=== PATIENT | male | born 1965 | race Caucasian/White ===

== ENCOUNTER 2016-02-14 08:43 | Inpatient (IN) | payer OTHER ==
[~2016-02-14] VITALS: Ht 177.8 cm; Wt 116.0 kg
[~2016-02-14 08:43] MED LIST: ALPRAZOLAM0.5 MG PO; AMBIEN5 MG PO; ASPIR 8181 M1 PO; ASPIRIN81 M2 PO; B-COMPLEX-VITA1 EACH PO; BACTRIM,SEPT1 TABLET PO; BENTYL20 MG PO; CALCIUM 600 MG1 EACH PO; CIPRO500 MG PO; CLINORIL200 MG PO; CLONAZEPAM0.5 MG PO; CYMBALTA30 MG PO; DAILY VALUE1 EACH PO; EXTRA STRENGTH500 M1 PO; FENTANYL1 EAC5 TD; GABAPENTIN300 MG PO; IRON325 M1 PO; LEVAQUIN750 MG PO; LIDOCAINE-HC 3-07 G1 PR; MACROBID100 MG PO; MAXIPIME2 GM IM; MINIPRESS1 MG PO; MYCARDIS PO; NAPROSYN500 MG PO; NEURONTIN300 MG PO; OLANZAPINE10 MG PO; OLANZAPINE7.5 MG PO; OXYCODONE HCL10 MG PO; OXYCODONE HCL15 MG PO; PERCOCET 5/31 TABLET PO; RELAFEN500 M1 PO; SERTRALINE HCL100 MG PO; SINGULAIR10 MG PO; SULINDAC200 MG PO; SUPER B COMP1 TABLET PO; TERAZOSIN HCL1 MG PO; TYLENOL EXTRA500 MG PO; TYLENOL REGULA325 MG PO; VITAMIN E200 UNI2 PO; ZOFRAN4 MG PO; ZOLOFT100 MG PO; ZOLOFT50 MG PO; ZOLPIDEM TARTRAT5 MG PO; ZYPREXA5 MG PO
[2016-02-14] MEDS ORDERED: LO-DOSE ASPIRIN81 M2 PO (09:23)
[2016-02-14 09:34] VITALS: BP 127/80
[2016-02-14 15:45] VITALS: BP 128/82
[2016-02-14 19:28] LABS: HEMATOCRIT 30.5 % (38.0-50.0); MCH 27.1 PG (29.0-34.0); MCHC 31.8 G/DL (30.0-36.0); MCV 85.2 FL (86-99); MEAN PLAT.VOLUME 10.3 uM^3 (9.0-12.4); PLATELET COUNT 220 K/uL (156-360); RBC DIS.WIDTH-CV 20.8 % (11.8-14.6); RBC DIS.WIDTH-SD 64.7 % (39-53); RED BLOOD COUNT 3.58 M/uL (4.00-5.50)
[2016-02-14 19:29] LABS: WHITE BLOOD COUNT 8.7 K/uL (4.1-10.2)
[2016-02-14 22:31] VITALS: BP 155/87
[2016-02-15 03:47] VITALS: BP 117/65
[2016-02-15 06:35] LABS: HEMATOCRIT 29.3 % (38.0-50.0); MCH 26.7 PG (29.0-34.0); MCHC 31.7 G/DL (30.0-36.0); MCV 84.2 FL (86-99); MEAN PLAT.VOLUME 9.7 uM^3 (9.0-12.4); PLATELET COUNT 177 K/uL (156-360); RBC DIS.WIDTH-SD 64.9 % (39-53); RED BLOOD COUNT 3.48 M/uL (4.00-5.50)
[2016-02-15 07:11] LABS: ANION GAP 7 MEQ/L (2-14); CHLORIDE 108 MEQ/L (99-109); GFR ESTIMATE (CALCULATED) 57 mL/min/; GLUCOSE 106 mg/dL (70-99); MAGNESIUM 1.8 mg/dl (1.3-2.7); POTASSIUM 4.4 MEQ/L (3.7-5.4); SAMPLE HEMOLYSIS CHECK 0; SAMPLE ICTERIC CHECK 0; SAMPLE LIPEMIA CHECK 0; SODIUM 135 MEQ/L (136-147); UREA NITROGEN (BUN) 16 mg/dL (9-23)
[2016-02-15 08:22] VITALS: BP 117/69
[2016-02-15 11:21] VITALS: BP 108/57
[2016-02-15 15:48] VITALS: BP 155/67
[2016-02-15 19:46] VITALS: BP 140/73
[2016-02-15 23:00] VITALS: BP 146/81
[2016-02-16 02:58] VITALS: BP 134/69
[2016-02-16 07:05] LABS: HEMATOCRIT 28.5 % (38.0-50.0); MCH 26.9 PG (29.0-34.0); MCHC 31.6 G/DL (30.0-36.0); MCV 85.1 FL (86-99); MEAN PLAT.VOLUME 10.4 uM^3 (9.0-12.4); PLATELET COUNT 159 K/uL (156-360); RBC DIS.WIDTH-CV 20.8 % (11.8-14.6); RBC DIS.WIDTH-SD 64.6 % (39-53); RED BLOOD COUNT 3.35 M/uL (4.00-5.50); WHITE BLOOD COUNT 5.8 K/uL (4.1-10.2)
[2016-02-16 07:30] LABS: ANION GAP 8 MEQ/L (2-14); CHLORIDE 109 MEQ/L (99-109); GFR ESTIMATE (CALCULATED) 57 mL/min/; GLUCOSE 123 mg/dL (70-99); POTASSIUM 4.1 MEQ/L (3.7-5.4); SAMPLE HEMOLYSIS CHECK 0; SAMPLE ICTERIC CHECK 0; SAMPLE LIPEMIA CHECK 0; SODIUM 138 MEQ/L (136-147); UREA NITROGEN (BUN) 17 mg/dL (9-23)
[2016-02-16 07:50] VITALS: BP 120/57
[2016-02-16] MEDS ORDERED: OXAYDO5 MG PO (10:25)
[2016-02-16 11:16] VITALS: BP 125/77
[2016-02-16 16:30] VITALS: BP 153/94
[2016-02-16 19:52] VITALS: BP 145/72
[2016-02-16 23:10] VITALS: BP 142/75
[2016-02-17 03:17] VITALS: BP 122/66
[2016-02-17 06:47] LABS: MCH 27.1 PG (29.0-34.0); MCHC 32.1 G/DL (30.0-36.0); MCV 84.5 FL (86-99); MEAN PLAT.VOLUME 10.5 uM^3 (9.0-12.4); PLATELET COUNT 168 K/uL (156-360); RBC DIS.WIDTH-CV 20.5 % (11.8-14.6); RBC DIS.WIDTH-SD 63.2 % (39-53); RED BLOOD COUNT 3.43 M/uL (4.00-5.50); WHITE BLOOD COUNT 7.1 K/uL (4.1-10.2)
[2016-02-17 07:15] LABS: ANION GAP 11 MEQ/L (2-14); CHLORIDE 108 MEQ/L (99-109); GFR ESTIMATE (CALCULATED) 49 mL/min/; GLUCOSE 120 mg/dL (70-99); POTASSIUM 4.6 MEQ/L (3.7-5.4); SAMPLE HEMOLYSIS CHECK 0; SAMPLE ICTERIC CHECK 0; SAMPLE LIPEMIA CHECK 0; SODIUM 138 MEQ/L (136-147); UREA NITROGEN (BUN) 17 mg/dL (9-23)
[2016-02-17 07:59] VITALS: BP 117/70
[2016-02-17 11:54] VITALS: BP 110/65
[2016-02-17 16:58] VITALS: BP 129/81
[2016-02-17 19:20] VITALS: BP 120/68
[2016-02-17 22:13] VITALS: BP 135/79
[2016-02-18 00:05] VITALS: BP 117/56
[2016-02-18 03:55] VITALS: BP 106/68
[2016-02-18 06:33] LABS: HEMATOCRIT 28.6 % (38.0-50.0); MCHC 31.8 G/DL (30.0-36.0); MCV 84.9 FL (86-99); PLATELET COUNT 161 K/uL (156-360); RBC DIS.WIDTH-CV 19.9 % (11.8-14.6); RBC DIS.WIDTH-SD 62.7 % (39-53); RED BLOOD COUNT 3.37 M/uL (4.00-5.50); WHITE BLOOD COUNT 7.1 K/uL (4.1-10.2)
[2016-02-18 07:06] LABS: ANION GAP 10 MEQ/L (2-14); CHLORIDE 108 MEQ/L (99-109); GFR ESTIMATE (CALCULATED) 57 mL/min/; GLUCOSE 118 mg/dL (70-99); POTASSIUM 4.4 MEQ/L (3.7-5.4); SAMPLE HEMOLYSIS CHECK 0; SAMPLE ICTERIC CHECK 0; SAMPLE LIPEMIA CHECK 0; SODIUM 139 MEQ/L (136-147); UREA NITROGEN (BUN) 13 mg/dL (9-23)
[2016-02-18 08:34] VITALS: BP 130/82
[2016-02-18 12:25] VITALS: BP 132/78
[2016-02-18 17:10] VITALS: BP 132/69
[2016-02-18 19:49] VITALS: BP 142/87
[2016-02-19 00:03] VITALS: BP 134/69
[2016-02-19 03:59] VITALS: BP 107/56
[2016-02-19 07:50] VITALS: BP 105/59
[2016-02-19 14:59] VITALS: BP 111/59
[2016-02-19 23:00] VITALS: BP 142/86
[2016-02-20 07:18] VITALS: BP 139/34; BP 139/64
[2016-03-11] MEDS ORDERED: OXAYDO5 MG PO (14:44)
[2016-03-11] MEDS ORDERED: ZYPREXA10 MG PO (14:45)
[2016-03-11] MEDS ORDERED: KLONOPIN0.5 M1 PO (14:46)
[2016-03-11] MEDS ORDERED: MINIPRESS1 MG PO (14:48)
[2016-03-11] MEDS ORDERED: DURAGESIC25 MCG TD (14:50)
[2016-03-11] MEDS ORDERED: CALCIUM 600 +1 EA16 PO (14:51)
[2016-03-11] MEDS ORDERED: VITAMIN E400 UNIT PO (14:53)
== END 2016-02-20 10:01 | disposition home health service (06) | DRG 333 ==
LOC: 2SOUTH 08:43 → 5EAST 08:43 → 2SOUTH 14:13 → 5EAST 14:52 → 2SOUTH 15:34 → 5EAST 02-20 10:01
PROVIDERS: Physician Assistant; Surgery
PROC: 0W9J00Z Drainage of Pelvic Cavity with Drainage Device, Open Approach (ICD-10-PCS; principal; 2016-02-14)
PROC: 3E0R3CZ (ICD-10-PCS; principal; 2016-02-14)
PROC: 00HU33Z Insertion of Infusion Device into Spinal Canal, Percutaneous Approach (ICD-10-PCS; principal; 2016-02-14)
PROC: 0DTP0ZZ Resection of Rectum, Open Approach (ICD-10-PCS; principal; 2016-02-14)
PROC: 30233N1 Transfusion of Nonautologous Red Blood Cells into Peripheral Vein, Percutaneous Approach (ICD-10-PCS; principal; 2016-02-14)
PROC: 0QBS0ZZ Excision of Coccyx, Open Approach (ICD-10-PCS; principal; 2016-02-14)
DX: K65.1 Peritoneal abscess (principal); D62 Acute posthemorrhagic anemia; Z85.048 Personal history of other malignant neoplasm of rectum, rectosigmoid junction, and anus; Z85.038 Personal history of other malignant neoplasm of large intestine; I10 Essential (primary) hypertension; F41.1 Generalized anxiety disorder; F32.9 Major depressive disorder, single episode, unspecified; J45.909 Unspecified asthma, uncomplicated; I71.2 Thoracic aortic aneurysm, without rupture; F17.220 Nicotine dependence, chewing tobacco, uncomplicated; Z93.3 Colostomy status; Z93.2 Ileostomy status; Z85.46 Personal history of malignant neoplasm of prostate; Z85.51 Personal history of malignant neoplasm of bladder; Z90.79 Acquired absence of other genital organ(s); Z90.6 Acquired absence of other parts of urinary tract; Z08 Encounter for follow-up examination after completed treatment for malignant neoplasm; Z88.5 Allergy status to narcotic agent
CPT/HCPCS: 80048; 83735; 84100; 85027; 86850; 86900; 86901; 86920; 88305; 93005; J0330; J1335; J1650; J2405; J2795; J3010; J7040; J7050; P9016

== ENCOUNTER 2016-03-13 08:35 | Day surgery (SDC) | payer OTHER ==
[~2016-03-13] VITALS: Ht 177.8 cm; Wt 116.0 kg
[~2016-03-13 08:35] MED LIST changes: +CALCIUM 600 +1 EA16 PO; +DURAGESIC25 MCG TD; +KLONOPIN0.5 M1 PO; +LO-DOSE ASPIRIN81 M2 PO; +OXAYDO5 MG PO; +VITAMIN E400 UNIT PO; +ZYPREXA10 MG PO
[2016-03-13 09:31] VITALS: BP 122/77
[2016-03-13 11:47] VITALS: BP 154/92
== END 2016-03-13 12:06 | disposition home or self-care (01) ==
LOC: SDC 08:35
DX: I87.8 Other specified disorders of veins (principal); C19 Malignant neoplasm of rectosigmoid junction; I10 Essential (primary) hypertension; F41.1 Generalized anxiety disorder; F32.9 Major depressive disorder, single episode, unspecified; I71.2 Thoracic aortic aneurysm, without rupture; J45.909 Unspecified asthma, uncomplicated; Z88.5 Allergy status to narcotic agent; F17.220 Nicotine dependence, chewing tobacco, uncomplicated; Z82.49 Family history of ischemic heart disease and other diseases of the circulatory system; Z83.3 Family history of diabetes mellitus; Z82.5 Family history of asthma and other chronic lower respiratory diseases
CPT/HCPCS: 71010; C1751; J0690; J2405; J3010

== ENCOUNTER 2016-04-26 17:45 | Emergency (ER) | payer OTHER ==
[~2016-04-26] VITALS: Ht 177.8 cm; Wt 128.3 kg
[~2016-04-26 17:45] MED LIST changes: +TERAZOSIN HCL2 MG PO
[2016-04-26 18:29] LABS: HEMATOCRIT 30.1 % (38.0-50.0); MCH 28.3 PG (29.0-34.0); MCHC 33.6 G/DL (30.0-36.0); MCV 84.3 FL (86-99); MEAN PLAT.VOLUME 10.7 uM^3 (9.0-12.4); NRBC (%) 0.8 /100 WBC (0-0); PLATELET COUNT 135 K/uL (156-360); RBC DIS.WIDTH-CV 21.4 % (11.8-14.6); RBC DIS.WIDTH-SD 63.9 % (39-53); RED BLOOD COUNT 3.57 M/uL (4.00-5.50); WHITE BLOOD COUNT 5.3 K/uL (4.1-10.2)
[2016-04-26 18:40] LABS: CHLORIDE 105 mEq/L (99-109); POTASSIUM 3.8 mEq/L (3.7-5.4); SODIUM 136 mEq/L (136-147)
[2016-04-26 18:42] LABS: GLUCOSE 261 mg/dL (70-99)
[2016-04-26 18:44] LABS: ANION GAP 12 MEQ/L (2-14); TOTAL BILIRUBIN 0.2 mg/dL (0.0-1.0)
[2016-04-26 18:46] LABS: ALKALINE PHOSPHATASE 124 IU/L (3-129); GFR ESTIMATE (CALCULATED) 40 mL/min/
[2016-04-26 18:47] LABS: UREA NITROGEN (BUN) 20 mg/dL (9-23)
[2016-04-26 18:50] LABS: TROP-I INTERPRETATION NEGATIVE; TROPONIN-I < 0.01 ng/mL (0.0-0.30)
[2016-04-26] MEDS ORDERED: TOPROL XL50 MG PO (18:56)
[2016-04-26 19:45] LABS: ADD MIUA? YES; BILIRUBIN NEGATIVE; BLOOD NEGATIVE; COLOR YELLOW ((YELLOW)); GLUCOSE (STRIP) >=500; KETONES NEGATIVE; LEUKOCYTES SMALL; NITRITE NEGATIVE; PROTEIN (STRIP) 100; SPECIFIC GRAVITY 1.017 (1.000-1.030); UROBILINOGEN 0.2 MG/DL (0.2-1.0)
[2016-04-26 19:54] LABS: BACTERIA NONE SEEN /HPF; EPITHELIAL CELLS RARE /HPF; MUCUS TRACE /LPF; UCUL ADDED? NO; UNCLASSIFIED CASTS 0-5 /LPF; UNCLASSIFIED CRYSTALS 1+ /HPF; WHITE BLOOD CELLS 40-50 /HPF (0-5)
[2016-04-26 20:06] VITALS: BP 144/93
== END 2016-04-26 20:07 | disposition home or self-care (01) ==
LOC: EME 17:45
DX: I10 Essential (primary) hypertension (principal); R82.99 Other abnormal findings in urine; C61 Malignant neoplasm of prostate; C67.9 Malignant neoplasm of bladder, unspecified; C18.9 Malignant neoplasm of colon, unspecified; C17.9 Malignant neoplasm of small intestine, unspecified; Z88.5 Allergy status to narcotic agent; Z79.82 Long term (current) use of aspirin; G40.909 Epilepsy, unspecified, not intractable, without status epilepticus
CPT/HCPCS: 80053; 81003; 84484; 85027; 99281; 99283

== ENCOUNTER → 2016-05-10 | Outpatient (CLI) | payer OTHER ==
[~2016-05-10] MED LIST changes: +CEFDINIR300 MG PO; +FAMOTIDINE40 MG PO; +HYTRIN1 MG PO; +LEVEMIR100 UNIT/2 SC; +LIDOCAINE20 MG/1 M5 PO; +MAGIC MOUTHWASH PO; +METOPROLOL TAR100 MG PO; +PROCHLORPERAZIN10 MG PO; +STRESS B-COMPL1 EACH PO; +TOPROL XL50 MG PO; +TRAZODONE HCL50 MG PO; +VITAMIN E1000 UNI1 PO; +ZIPRASIDONE HCL20 MG PO
== END | disposition home or self-care (01) ==
LOC: NUC 10:40
DX: N13.30 Unspecified hydronephrosis (principal); Z93.6 Other artificial openings of urinary tract status
CPT/HCPCS: 78709; A9562

== ENCOUNTER 2016-05-21 10:32 | Emergency (ER) | payer OTHER ==
[~2016-05-21] VITALS: Ht 177.8 cm; Wt 118.5 kg
[~2016-05-21 10:32] MED LIST changes: -CEFDINIR300 MG PO; -FAMOTIDINE40 MG PO; -HYTRIN1 MG PO; -LEVEMIR100 UNIT/2 SC; -LIDOCAINE20 MG/1 M5 PO; -MAGIC MOUTHWASH PO; -METOPROLOL TAR100 MG PO; -STRESS B-COMPL1 EACH PO; -TRAZODONE HCL50 MG PO; -VITAMIN E1000 UNI1 PO; -ZIPRASIDONE HCL20 MG PO
[2016-05-21 10:59] VITALS: BP 115/70
[2016-05-21] MEDS ORDERED: STRESS B-COMPL1 EACH PO (16:13)
[2016-05-21] MEDS ORDERED: TRAZODONE HCL50 MG PO (16:15)
[2016-05-21] MEDS ORDERED: FAMOTIDINE40 MG PO (16:17)
[2016-05-21] MEDS ORDERED: VITAMIN E1000 UNI1 PO (16:22)
[2016-05-21] MEDS ORDERED: HYTRIN1 MG PO (16:23)
[2016-05-21] MEDS ORDERED: METOPROLOL TAR100 MG PO (16:24)
[2016-05-21] MEDS ORDERED: MAGIC MOUTHWASH PO (16:35)
[2016-05-28] MEDS ORDERED: LEVEMIR100 UNIT/2 SC (09:09)
[2016-05-28] MEDS ORDERED: KLONOPIN0.5 M1 PO (10:18)
== END 2016-05-21 11:30 | disposition left against medical advice (07) ==
LOC: EME 10:32
DX: R73.9 Hyperglycemia, unspecified (principal); Z53.21 Procedure and treatment not carried out due to patient leaving prior to being seen by health care provider
CPT/HCPCS: 80048; 81003; 85027; 93005

== ENCOUNTER 2016-05-21 12:17 | Inpatient (IN) | payer OTHER ==
[~2016-05-21] VITALS: Ht 177.8 cm; Wt 124.8 kg
[2016-05-21 13:38] LABS: HEMATOCRIT 26.5 % (38.0-50.0); MCH 29.2 PG (29.0-34.0); MCHC 34.7 G/DL (30.0-36.0); MCV 84.1 FL (86-99); MEAN PLAT.VOLUME 11.6 uM^3 (9.0-12.4); NRBC (%) 0.6 /100 WBC (0-0); PLATELET COUNT 184 K/uL (156-360); RBC DIS.WIDTH-CV 21.3 % (11.8-14.6); RBC DIS.WIDTH-SD 65.5 % (39-53); RED BLOOD COUNT 3.15 M/uL (4.00-5.50); WHITE BLOOD COUNT 3.2 K/uL (4.1-10.2)
[2016-05-21 13:43] LABS: CHLORIDE 90 mEq/L (99-109); POTASSIUM 4.1 mEq/L (3.7-5.4); SODIUM 125 mEq/L (136-147)
[2016-05-21 13:45] LABS: ADD MIUA? YES; BILIRUBIN NEGATIVE; BLOOD NEGATIVE; COLOR YELLOW ((YELLOW)); GLUCOSE (STRIP) >=500; KETONES NEGATIVE; LEUKOCYTES LARGE; NITRITE POSITIVE; PROTEIN (STRIP) 30; SPECIFIC GRAVITY 1.027 (1.000-1.030); UROBILINOGEN 0.2 MG/DL (0.2-1.0)
[2016-05-21 13:46] LABS: ANION GAP 13 MEQ/L (2-14)
[2016-05-21 13:47] LABS: GLUCOSE 689 mg/dL (70-99); TOTAL BILIRUBIN 0.4 mg/dL (0.0-1.0)
[2016-05-21 13:48] LABS: ALKALINE PHOSPHATASE 151 IU/L (3-129)
[2016-05-21 13:49] LABS: GFR ESTIMATE (CALCULATED) 29 mL/min/
[2016-05-21 14:19] LABS: BACTERIA RARE /HPF; EPITHELIAL CELLS NONE SEEN /HPF; MUCUS NONE SEEN /LPF; UCUL ADDED? YES; WHITE BLOOD CELLS TNTC /HPF (0-5); WHITE BLOOD CELLS CLUMP MANY /HPF (0-5)
[2016-05-21 14:26] LABS: BASE EXCESS 0.2 mEq/L (-3 to +3); BICARBONATE 24.6 mEq/L (22-26); METHEMOGLOBIN 1.3 % (0-1.5); PCO2 38 mm Hg (35-45); PO2 67 mm Hg (80-100); pH 7.42 (7.35-7.45)
[2016-05-21 14:27] LABS: COMMENTS - BLOOD GASES A+C+; DEVICE RA; FI02 21 %; SITE RRA; TOTAL RESP RATE 18 resp/min
[2016-05-21] MEDS ORDERED: STRESS B-COMPL1 EACH PO (16:13)
[2016-05-21] MEDS ORDERED: TRAZODONE HCL50 MG PO (16:15)
[2016-05-21] MEDS ORDERED: FAMOTIDINE40 MG PO (16:17)
[2016-05-21] MEDS ORDERED: VITAMIN E1000 UNI1 PO (16:22)
[2016-05-21] MEDS ORDERED: HYTRIN1 MG PO (16:23)
[2016-05-21] MEDS ORDERED: METOPROLOL TAR100 MG PO (16:24)
[2016-05-21] MEDS ORDERED: MAGIC MOUTHWASH PO (16:35)
[2016-05-21 17:18] LABS: POINT-OF-CARE METER ID UU14100415
[2016-05-21 17:56] LABS: CHLORIDE 98 mEq/L (99-109); POTASSIUM 3.7 mEq/L (3.7-5.4)
[2016-05-21 17:58] LABS: SODIUM 132 mEq/L (136-147)
[2016-05-21 17:59] LABS: ANION GAP 11 MEQ/L (2-14)
[2016-05-21 18:02] LABS: GFR ESTIMATE (CALCULATED) 34 mL/min/; UREA NITROGEN (BUN) 21 mg/dL (9-23)
[2016-05-21 18:03] LABS: GLUCOSE 404 mg/dL (70-99)
[2016-05-22 04:00] VITALS: BP 117/59
[2016-05-22 07:23] LABS: HEMATOCRIT 23.2 % (38.0-50.0); MCH 29.6 PG (29.0-34.0); MCHC 34.1 G/DL (30.0-36.0); MCV 86.9 FL (86-99); MEAN PLAT.VOLUME 11.1 uM^3 (9.0-12.4); NRBC (%) 1.3 /100 WBC (0-0); PLATELET COUNT 155 K/uL (156-360); RBC DIS.WIDTH-CV 21.7 % (11.8-14.6); RBC DIS.WIDTH-SD 68.8 % (39-53); RED BLOOD COUNT 2.67 M/uL (4.00-5.50); WHITE BLOOD COUNT 2.3 K/uL (4.1-10.2)
[2016-05-22 07:44] LABS: ALKALINE PHOSPHATASE 108 IU/L (3-129); ANION GAP 9 MEQ/L (2-14); CHLORIDE 100 MEQ/L (99-109); GFR ESTIMATE (CALCULATED) 43 mL/min/; GLUCOSE 390 mg/dL (70-99); POTASSIUM 4.1 MEQ/L (3.7-5.4); SAMPLE HEMOLYSIS CHECK 0; SAMPLE ICTERIC CHECK 0; SAMPLE LIPEMIA CHECK 0; SODIUM 130 MEQ/L (136-147); TOTAL BILIRUBIN 0.2 MG/DL (0.0-1.0); UREA NITROGEN (BUN) 20 mg/dL (9-23)
[2016-05-22 08:12] VITALS: BP 116/66
[2016-05-22 11:26] VITALS: BP 119/75
[2016-05-22 12:24] LABS: POINT-OF-CARE METER ID UU14188625; POINT-OF-CARE USER ID BHSKTD
[2016-05-22 12:24] LABS: POINT-OF-CARE METER ID UU14100415
[2016-05-22 12:37] LABS: Estimated Average Glucose 278 mg/dL (70-123); HEMOGLOBIN A1c (GLYCOHEMOGLOB) 11.3 % HGB (Below 5.7)
[2016-05-22 16:03] VITALS: BP 132/82
[2016-05-22 19:54] VITALS: BP 121/60
[2016-05-22 21:27] LABS: POINT-OF-CARE METER ID UU14174225
[2016-05-22 23:30] VITALS: BP 120/67
[2016-05-23 03:08] VITALS: BP 122/65
[2016-05-23 06:16] LABS: HEMATOCRIT 23.5 % (38.0-50.0); MCH 29.3 PG (29.0-34.0); MCHC 33.2 G/DL (30.0-36.0); MCV 88.3 FL (86-99); MEAN PLAT.VOLUME 10.8 uM^3 (9.0-12.4); NRBC (%) 2.3 /100 WBC (0-0); PLATELET COUNT 171 K/uL (156-360); RBC DIS.WIDTH-CV 21.4 % (11.8-14.6); RBC DIS.WIDTH-SD 69.3 % (39-53); RED BLOOD COUNT 2.66 M/uL (4.00-5.50); WHITE BLOOD COUNT 2.7 K/uL (4.1-10.2)
[2016-05-23 06:44] LABS: ANION GAP 7 MEQ/L (2-14); CHLORIDE 107 MEQ/L (99-109); GFR ESTIMATE (CALCULATED) 43 mL/min/; GLUCOSE 285 mg/dL (70-99); POTASSIUM 4.2 MEQ/L (3.7-5.4); SAMPLE HEMOLYSIS CHECK 0; SAMPLE ICTERIC CHECK 0; SAMPLE LIPEMIA CHECK 0; SODIUM 135 MEQ/L (136-147); UREA NITROGEN (BUN) 14 mg/dL (9-23)
[2016-05-23 08:14] VITALS: BP 129/86
[2016-05-23] MEDS ORDERED: LEVEMIR100 UNIT/2 SC (11:24)
[2016-05-23 11:28] VITALS: BP 112/62
[2016-05-23] MEDS ORDERED: CEFDINIR300 MG PO (11:35)
[2016-05-24] MEDS ORDERED: LIDOCAINE20 MG/1 M5 PO (17:52)
[2016-05-24] MEDS ORDERED: ZIPRASIDONE HCL20 MG PO (17:53)
[2016-05-28] MEDS ORDERED: LEVEMIR100 UNIT/2 SC (09:09)
[2016-05-28] MEDS ORDERED: KLONOPIN0.5 M1 PO (10:18)
== END 2016-05-23 12:21 | disposition home health service (06) | DRG 637 ==
LOC: EME 12:17 → 5SOUTH 16:28 → EDOF 16:28 → 5SOUTH 19:03
PROVIDERS: Internal Medicine; Nurse Practitioner Adult Health; Physician Assistant; Student in an Organized Health Care Education/Training Program
DX: E11.00 Type 2 diabetes mellitus with hyperosmolarity without nonketotic hyperglycemic-hyperosmolar coma (NKHHC) (principal); K65.1 Peritoneal abscess; E87.1 Hypo-osmolality and hyponatremia; N39.0 Urinary tract infection, site not specified; D50.9 Iron deficiency anemia, unspecified; C19 Malignant neoplasm of rectosigmoid junction; Z79.899 Other long term (current) drug therapy; N17.9 Acute kidney failure, unspecified; I12.9 Hypertensive chronic kidney disease with stage 1 through stage 4 chronic kidney disease, or unspecified chronic kidney disease; N18.3 Chronic kidney disease, stage 3 (moderate); E11.22 Type 2 diabetes mellitus with diabetic chronic kidney disease; I71.2 Thoracic aortic aneurysm, without rupture; F41.9 Anxiety disorder, unspecified; F32.9 Major depressive disorder, single episode, unspecified; K21.9 Gastro-esophageal reflux disease without esophagitis; Z93.3 Colostomy status; Z93.6 Other artificial openings of urinary tract status; Z90.49 Acquired absence of other specified parts of digestive tract
CPT/HCPCS: 36600; 71010; 80048; 80048 91; 80053; 81003; 82010; 82803; 82948; 83036; 85025; 85027; 85610; 85730; 87040; 87077; 87086; 87186; 93005; 99281; 99285; J0696; J1644; J1815; J2405; J7030; J7050

== ENCOUNTER 2016-05-23 14:31 | Emergency (ER) | payer OTHER ==
[~2016-05-23] VITALS: Ht 177.8 cm; Wt 1195.0 kg
[~2016-05-23 14:31] MED LIST changes: +CEFDINIR300 MG PO; +FAMOTIDINE40 MG PO; +HYTRIN1 MG PO; +LEVEMIR100 UNIT/2 SC; +MAGIC MOUTHWASH PO; +METOPROLOL TAR100 MG PO; +STRESS B-COMPL1 EACH PO; +TRAZODONE HCL50 MG PO; +VITAMIN E1000 UNI1 PO
[2016-05-23 15:19] LABS: HEMATOCRIT 26.4 % (38.0-50.0); MCH 29.1 PG (29.0-34.0); MCV 88.3 FL (86-99); MEAN PLAT.VOLUME 10.1 uM^3 (9.0-12.4); NRBC (%) 1.6 /100 WBC (0-0); PLATELET COUNT 206 K/uL (156-360); RBC DIS.WIDTH-CV 21.1 % (11.8-14.6); RBC DIS.WIDTH-SD 68.2 % (39-53); RED BLOOD COUNT 2.99 M/uL (4.00-5.50); WHITE BLOOD COUNT 3.1 K/uL (4.1-10.2)
[2016-05-23 15:29] LABS: CHLORIDE 106 mEq/L (99-109); POTASSIUM 4.5 mEq/L (3.7-5.4); SODIUM 135 mEq/L (136-147)
[2016-05-23 15:31] LABS: GLUCOSE 263 mg/dL (70-99)
[2016-05-23 15:32] LABS: ANION GAP 8 MEQ/L (2-14)
[2016-05-23 15:34] LABS: SERUM ETHYL ALCOHOL < 10 mg/dL
[2016-05-23 15:35] LABS: GFR ESTIMATE (CALCULATED) 40 mL/min/; UREA NITROGEN (BUN) 14 mg/dL (9-23)
[2016-05-23 17:19] LABS: AMPHETAMINE NEGATIVE (500 ng/mL); BARBITURATES NEGATIVE (200 ng/mL); BENZODIAZEPINES NEGATIVE (150 ng/mL); COCAINE NEGATIVE (150 ng/mL); INTERNAL CONTROLS VALID? YES; METHADONE NEGATIVE (200 ng/mL); METHAMPHETAMINE NEGATIVE (500 ng/mL); OPIATES (MORPHINE) NEGATIVE (100 ng/mL); OXYCODONE NEGATIVE (100 ng/mL); PHENCYCLIDINE NEGATIVE (25 ng/mL); PROPOXYPHENE NEGATIVE (300 ng/mL); THC CANNABINOIDS NEGATIVE (50 ng/mL); TRICYCLIC ANTIDEPRESSANTS NEGATIVE (300 ng/mL)
[2016-05-23 20:55] LABS: POINT-OF-CARE METER ID UU13113702
[2016-05-24 00:39] VITALS: BP 128/77
[2016-05-24] MEDS ORDERED: LIDOCAINE20 MG/1 M5 PO (17:52)
[2016-05-24] MEDS ORDERED: ZIPRASIDONE HCL20 MG PO (17:53)
[2016-05-28] MEDS ORDERED: LEVEMIR100 UNIT/2 SC (09:09)
[2016-05-28] MEDS ORDERED: KLONOPIN0.5 M1 PO (10:18)
== END 2016-05-24 00:41 | disposition home or self-care (01) ==
LOC: EME 14:31
PROVIDERS: Emergency Medicine
DX: F32.9 Major depressive disorder, single episode, unspecified (principal); F43.23 Adjustment disorder with mixed anxiety and depressed mood; E11.9 Type 2 diabetes mellitus without complications; I10 Essential (primary) hypertension; Z85.46 Personal history of malignant neoplasm of prostate; Z85.51 Personal history of malignant neoplasm of bladder; Z85.038 Personal history of other malignant neoplasm of large intestine; Z85.068 Personal history of other malignant neoplasm of small intestine
CPT/HCPCS: 80048 91; 82948; 85027; 90839; 99281; 99285; G0480

== ENCOUNTER 2016-05-24 15:12 | Observation (INO) | payer OTHER ==
[~2016-05-24] VITALS: Ht 177.8 cm; Wt 120.0 kg
[2016-05-24 16:03] LABS: HEMATOCRIT 26.8 % (38.0-50.0); MCH 29.8 PG (29.0-34.0); MCV 87.9 FL (86-99); MEAN PLAT.VOLUME 10.9 uM^3 (9.0-12.4); NRBC (%) 2.3 /100 WBC (0-0); PLATELET COUNT 221 K/uL (156-360); RBC DIS.WIDTH-CV 20.5 % (11.8-14.6); RBC DIS.WIDTH-SD 65.9 % (39-53); RED BLOOD COUNT 3.05 M/uL (4.00-5.50)
[2016-05-24 16:16] LABS: CHLORIDE 100 mEq/L (99-109); POTASSIUM 4.8 mEq/L (3.7-5.4)
[2016-05-24 16:18] LABS: SODIUM 127 mEq/L (136-147)
[2016-05-24 16:19] LABS: ANION GAP 9 MEQ/L (2-14)
[2016-05-24 16:20] LABS: GLUCOSE 596 mg/dL (70-99)
[2016-05-24 16:22] LABS: GFR ESTIMATE (CALCULATED) 38 mL/min/
[2016-05-24 16:23] LABS: UREA NITROGEN (BUN) 16 mg/dL (9-23)
[2016-05-24 16:25] LABS: TROP-I INTERPRETATION NEGATIVE; TROPONIN-I < 0.01 ng/mL (0.0-0.30)
[2016-05-24] MEDS ORDERED: LIDOCAINE20 MG/1 M5 PO (17:52)
[2016-05-24] MEDS ORDERED: ZIPRASIDONE HCL20 MG PO (17:53)
[2016-05-24 20:30] VITALS: BP 158/94
[2016-05-24 22:04] LABS: TROP-I INTERPRETATION NEGATIVE; TROPONIN-I < 0.01 ng/mL (0.0-0.30)
[2016-05-25] VITALS: BP 114/55
[2016-05-25 03:09] VITALS: BP 100/55
[2016-05-25 03:25] LABS: HEMATOCRIT 25.7 % (38.0-50.0); MCH 28.8 PG (29.0-34.0); MCHC 32.7 G/DL (30.0-36.0); MEAN PLAT.VOLUME 10.3 uM^3 (9.0-12.4); NRBC (%) 1.4 /100 WBC (0-0); PLATELET COUNT 207 K/uL (156-360); RBC DIS.WIDTH-CV 20.5 % (11.8-14.6); RED BLOOD COUNT 2.92 M/uL (4.00-5.50); WHITE BLOOD COUNT 2.9 K/uL (4.1-10.2)
[2016-05-25 03:34] LABS: CHLORIDE 107 mEq/L (99-109); SODIUM 139 mEq/L (136-147)
[2016-05-25 03:37] LABS: ANION GAP 9 MEQ/L (2-14); GLUCOSE 162 mg/dL (70-99)
[2016-05-25 03:40] LABS: GFR ESTIMATE (CALCULATED) 46 mL/min/
[2016-05-25 03:41] LABS: UREA NITROGEN (BUN) 15 mg/dL (9-23)
[2016-05-25 03:47] LABS: TROP-I INTERPRETATION NEGATIVE; TROPONIN-I < 0.01 ng/mL (0.0-0.30)
[2016-05-25 08:57] LABS: POINT-OF-CARE METER ID UU13113831
[2016-05-25 09:13] VITALS: BP 116/65
[2016-05-25 11:44] VITALS: BP 124/83
[2016-05-25 11:53] LABS: POINT-OF-CARE METER ID UU13113831
[2016-05-28] MEDS ORDERED: LEVEMIR100 UNIT/2 SC (09:09)
[2016-05-28] MEDS ORDERED: KLONOPIN0.5 M1 PO (10:18)
[2016-05-28 14:53] LABS: POINT-OF-CARE METER ID UU13113702
[2016-05-28 14:53] LABS: POINT-OF-CARE METER ID UU13113778
== END 2016-05-25 12:15 | disposition home health service (06) ==
LOC: EME 15:12 → EDOF 19:08 → 5WEST 19:52
PROVIDERS: Hospitalist
DX: R07.89 Other chest pain (principal); E11.65 Type 2 diabetes mellitus with hyperglycemia; E87.1 Hypo-osmolality and hyponatremia; C18.9 Malignant neoplasm of colon, unspecified; D64.9 Anemia, unspecified; I12.9 Hypertensive chronic kidney disease with stage 1 through stage 4 chronic kidney disease, or unspecified chronic kidney disease; N18.3 Chronic kidney disease, stage 3 (moderate); D72.819 Decreased white blood cell count, unspecified; Z93.3 Colostomy status; K21.9 Gastro-esophageal reflux disease without esophagitis; F41.1 Generalized anxiety disorder; F32.9 Major depressive disorder, single episode, unspecified; E66.9 Obesity, unspecified; Z68.37 Body mass index [BMI] 37.0-37.9, adult; K61.2 Anorectal abscess
CPT/HCPCS: 71020; 71250; 72192; 80048; 82948; 84484; 85027; 93005; 99281; 99285; G0378; J1644; J1815; J7030

== ENCOUNTER 2016-05-29 11:24 | Inpatient (IN) | payer OTHER ==
[~2016-05-29] VITALS: Ht 177.8 cm; Wt 118.1 kg
[~2016-05-29 11:24] MED LIST changes: +LIDOCAINE20 MG/1 M5 PO; +ZIPRASIDONE HCL20 MG PO
[2016-05-29 11:45] LABS: POINT-OF-CARE METER ID UU13113778
[2016-05-29 12:46] LABS: CHLORIDE 105 mEq/L (99-109); HEMATOCRIT 32.5 % (38.0-50.0); MCH 29.2 PG (29.0-34.0); MCHC 32.9 G/DL (30.0-36.0); MCV 88.6 FL (86-99); MEAN PLAT.VOLUME 11.5 uM^3 (9.0-12.4); NRBC (%) 0.3 /100 WBC (0-0); PLATELET COUNT 283 K/uL (156-360); POTASSIUM 4.2 mEq/L (3.7-5.4); RBC DIS.WIDTH-SD 64.2 % (39-53); RED BLOOD COUNT 3.67 M/uL (4.00-5.50); SODIUM 133 mEq/L (136-147); WHITE BLOOD COUNT 7.1 K/uL (4.1-10.2)
[2016-05-29 12:48] LABS: GLUCOSE 284 mg/dL (70-99)
[2016-05-29 12:49] LABS: ANION GAP 11 MEQ/L (2-14)
[2016-05-29 12:51] LABS: SERUM ETHYL ALCOHOL < 10 mg/dL
[2016-05-29 12:52] LABS: GFR ESTIMATE (CALCULATED) 38 mL/min/
[2016-05-29 12:53] LABS: UREA NITROGEN (BUN) 32 mg/dL (9-23)
[2016-05-29 12:57] LABS: TROP-I INTERPRETATION NEGATIVE; TROPONIN-I < 0.01 ng/mL (0.0-0.30)
[2016-05-29 13:39] LABS: AMPHETAMINE NEGATIVE (500 ng/mL); BARBITURATES NEGATIVE (200 ng/mL); BENZODIAZEPINES NEGATIVE (150 ng/mL); COCAINE NEGATIVE (150 ng/mL); INTERNAL CONTROLS VALID? YES; METHADONE NEGATIVE (200 ng/mL); METHAMPHETAMINE NEGATIVE (500 ng/mL); OPIATES (MORPHINE) NEGATIVE (100 ng/mL); OXYCODONE NEGATIVE (100 ng/mL); PHENCYCLIDINE NEGATIVE (25 ng/mL); PROPOXYPHENE NEGATIVE (300 ng/mL); THC CANNABINOIDS NEGATIVE (50 ng/mL); TRICYCLIC ANTIDEPRESSANTS NEGATIVE (300 ng/mL)
[2016-05-29] MEDS ORDERED: ZOFRAN8 MG PO (14:55)
[2016-05-29] MEDS ORDERED: COMPAZINE10 MG PO (14:57)
[2016-05-29] MEDS ORDERED: NOVOLOG 10100 UNITS/ SC (14:58)
[2016-05-29] MEDS ORDERED: ZOLPIDEM TARTRAT5 MG PO (14:59)
[2016-05-29] MEDS ORDERED: CEFDINIR300 MG PO (15:03)
[2016-05-29] MEDS ORDERED: OLANZAPINE7.5 MG PO (15:05)
[2016-05-29] MEDS ORDERED: SERTRALINE HCL100 MG PO (15:28)
[2016-05-29 17:05] VITALS: BP 131/76
[2016-05-29 18:26] LABS: TROP-I INTERPRETATION NEGATIVE; TROPONIN-I 0.01 ng/mL (0.0-0.30)
[2016-05-29 18:46] LABS: POINT-OF-CARE METER ID UU13113700
[2016-05-29 20:15] VITALS: BP 119/78
[2016-05-29 21:06] LABS: POINT-OF-CARE METER ID UU14162513
[2016-05-29 23:35] VITALS: BP 118/60
[2016-05-30 01:08] LABS: TROP-I INTERPRETATION NEGATIVE; TROPONIN-I < 0.01 ng/mL (0.0-0.30)
[2016-05-30 07:25] LABS: TROP-I INTERPRETATION NEGATIVE; TROPONIN-I < 0.01 ng/mL (0.0-0.30)
[2016-05-30 07:48] LABS: HEMATOCRIT 30.5 % (38.0-50.0); MCH 29.3 PG (29.0-34.0); MCHC 32.5 G/DL (30.0-36.0); MCV 90.2 FL (86-99); MEAN PLAT.VOLUME 11.2 uM^3 (9.0-12.4); PLATELET COUNT 237 K/uL (156-360); RBC DIS.WIDTH-CV 19.8 % (11.8-14.6); RBC DIS.WIDTH-SD 66.3 % (39-53); RED BLOOD COUNT 3.38 M/uL (4.00-5.50); WHITE BLOOD COUNT 4.3 K/uL (4.1-10.2)
[2016-05-30 07:57] LABS: ALKALINE PHOSPHATASE 111 IU/L (3-129); ANION GAP 12 MEQ/L (2-14); CHLORIDE 108 MEQ/L (99-109); GFR ESTIMATE (CALCULATED) 43 mL/min/; GLUCOSE 311 mg/dL (70-99); POTASSIUM 4.9 MEQ/L (3.7-5.4); SAMPLE HEMOLYSIS CHECK 0; SAMPLE ICTERIC CHECK 0; SAMPLE LIPEMIA CHECK 0; SODIUM 137 MEQ/L (136-147); TOTAL BILIRUBIN 0.3 MG/DL (0.0-1.0); UREA NITROGEN (BUN) 34 mg/dL (9-23)
[2016-05-30 08:10] VITALS: BP 130/70
[2016-05-30 12:09] VITALS: BP 132/75
[2016-05-30 13:13] LABS: POINT-OF-CARE METER ID UU14162513
[2016-05-30 16:53] VITALS: BP 126/71
[2016-05-30] MEDS ORDERED: KLONOPIN0.5 M1 PO (18:55)
[2016-05-30 20:00] VITALS: BP 105/56
[2016-05-31 00:09] LABS: POINT-OF-CARE METER ID UU13113831
[2016-05-31 00:30] VITALS: BP 106/54
[2016-05-31 04:00] VITALS: BP 110/63
[2016-05-31 07:00] LABS: ANION GAP 10 MEQ/L (2-14); CHLORIDE 104 MEQ/L (99-109); GFR ESTIMATE (CALCULATED) 49 mL/min/; GLUCOSE 293 mg/dL (70-99); POTASSIUM 4.3 MEQ/L (3.7-5.4); SAMPLE HEMOLYSIS CHECK 0; SAMPLE ICTERIC CHECK 0; SAMPLE LIPEMIA CHECK 2; SODIUM 133 MEQ/L (136-147); UREA NITROGEN (BUN) 29 mg/dL (9-23)
[2016-05-31 07:39] VITALS: BP 110/74
[2016-05-31 08:12] LABS: POINT-OF-CARE METER ID UU14162513
[2016-05-31 10:53] VITALS: BP 108/69
[2016-06-03 12:20] LABS: POINT-OF-CARE METER ID UU13113831
== END 2016-05-31 15:40 | DRG 313 ==
LOC: EME 11:24 → EDOF 15:16 → 5WEST 15:16 → EDOF 15:16 → 5WEST 16:38
PROVIDERS: Hospitalist; Nurse Practitioner Adult Health
DX: R07.89 Other chest pain (principal); E11.65 Type 2 diabetes mellitus with hyperglycemia; C20 Malignant neoplasm of rectum; N18.3 Chronic kidney disease, stage 3 (moderate); I12.9 Hypertensive chronic kidney disease with stage 1 through stage 4 chronic kidney disease, or unspecified chronic kidney disease; E78.5 Hyperlipidemia, unspecified; F32.9 Major depressive disorder, single episode, unspecified; K21.9 Gastro-esophageal reflux disease without esophagitis; Z93.59 Other cystostomy status; F41.1 Generalized anxiety disorder; E11.22 Type 2 diabetes mellitus with diabetic chronic kidney disease; R45.851 Suicidal ideations
CPT/HCPCS: 71020; 78582; 80048; 80053; 81003; 82948; 84484; 85025; 85027; 93005; 99202; 99281; 99285; A9539; A9540; G0378; G0480; J1644; J1815; J3480; J7030; J7120

== ENCOUNTER 2016-05-31 15:33 | Inpatient (IN) | payer OTHER ==
[~2016-05-31] VITALS: Ht 177.8 cm; Wt 118.1 kg
[~2016-05-31 15:33] MED LIST changes: +COMPAZINE10 MG PO; +NOVOLOG 10100 UNITS/ SC; +ZOFRAN8 MG PO
[2016-05-31 15:57] VITALS: BP 109/51
[2016-05-31 16:48] VITALS: BP 109/51
[2016-06-01 06:24] LABS: POINT-OF-CARE METER ID UU13113830
[2016-06-01 08:01] VITALS: BP 108/57
[2016-06-01 11:52] LABS: POINT-OF-CARE METER ID UU13113830
[2016-06-01 15:42] VITALS: BP 124/61
[2016-06-01 16:36] LABS: POINT-OF-CARE METER ID UU13113830
[2016-06-01 20:56] LABS: POINT-OF-CARE METER ID UU13113830; POINT-OF-CARE USER ID BHSSMG
[2016-06-02 06:40] LABS: POINT-OF-CARE METER ID UU13113830; POINT-OF-CARE USER ID ENVTLS63
[2016-06-02 07:54] VITALS: BP 127/69
[2016-06-02] MEDS ORDERED: CEFDINIR300 MG PO (09:38)
[2016-06-02] MEDS ORDERED: OLANZAPINE10 MG PO (09:38)
[2016-06-02] MEDS ORDERED: EFFEXOR XR37.5 MG PO (09:38)
== END 2016-06-02 11:12 | disposition home or self-care (01) | DRG 885 ==
LOC: 1WEST 15:33
PROVIDERS: Psychiatry & Neurology Psychiatry
DX: F33.9 Major depressive disorder, recurrent, unspecified (principal); R45.851 Suicidal ideations; F41.1 Generalized anxiety disorder; E11.9 Type 2 diabetes mellitus without complications; I10 Essential (primary) hypertension; Z85.038 Personal history of other malignant neoplasm of large intestine
CPT/HCPCS: 80053; 82948; 85025

== ENCOUNTER → 2016-06-03 | Outpatient (CLI) | payer OTHER ==
[~2016-06-03] MED LIST changes: +EFFEXOR XR37.5 MG PO
[2016-06-03 09:12] LABS: EOSINOPHIL (%) 2.3 % (0-5); EOSINOPHIL COUNT 0.1 K/uL (0-0.3); IMMATURE GRANULOCYTE (%) 0.7 % (0.0-0.7); INSTRUMENT ABS NEUTROPHIL CT 3.7 K/uL; LYMPHOCYTE COUNT 0.3 K/uL (1.0-2.8); MCH 30.5 PG (29.0-34.0); MCHC 34.6 G/DL (30.0-36.0); MCV 88.1 FL (86-99); MEAN PLAT.VOLUME 10.9 uM^3 (9.0-12.4); MONOCYTE (%) 7.4 % (3-12); MONOCYTE COUNT 0.3 K/uL (0-0.8); NEUTROPHIL (%) 82.1 % (45-76); NEUTROPHIL COUNT 3.7 K/uL (1.8-6.4); PLATELET COUNT 180 K/uL (156-360); RBC DIS.WIDTH-CV 18.2 % (11.8-14.6); RBC DIS.WIDTH-SD 59.4 % (39-53); RED BLOOD COUNT 3.18 M/uL (4.00-5.50); WHITE BLOOD COUNT 4.4 K/uL (4.1-10.2)
[2016-06-03 09:22] LABS: PROTHROMBIN TIME 9.7 (9.2-11.2); PTT 25.4 (25-32)
== END | disposition home or self-care (01) ==
LOC: OPR 08:26 → EDSTATUS 09:00 → OPR 09:00
PROVIDERS: Urology
PROC: 0T9030Z Drainage of Right Kidney with Drainage Device, Percutaneous Approach (ICD-10-PCS; principal; 2016-06-03)
DX: N13.30 Unspecified hydronephrosis (principal); I10 Essential (primary) hypertension; Z85.51 Personal history of malignant neoplasm of bladder; Z85.46 Personal history of malignant neoplasm of prostate; C20 Malignant neoplasm of rectum; Z92.21 Personal history of antineoplastic chemotherapy; Z92.3 Personal history of irradiation; Z80.0 Family history of malignant neoplasm of digestive organs; Z93.6 Other artificial openings of urinary tract status; Z93.2 Ileostomy status
CPT/HCPCS: 77012; 85025; 85610; 85730; C1769; J0690; J3010

== ENCOUNTER → 2016-06-28 | Outpatient (CLI) | payer OTHER ==
[~2016-06-28] MED LIST changes: +EFFEXOR25 MG PO
== END | disposition home or self-care (01) ==
LOC: NUC 10:47
DX: R94.4 Abnormal results of kidney function studies (principal); N13.1 Hydronephrosis with ureteral stricture, not elsewhere classified; Z93.6 Other artificial openings of urinary tract status
CPT/HCPCS: 78709; A9562

== ENCOUNTER 2016-07-10 13:06 | Inpatient (IN) | payer OTHER ==
[~2016-07-10] VITALS: Ht 177.8 cm; Wt 129.5 kg
[~2016-07-10 13:06] MED LIST changes: +HUMALOG100 UNIT/1 SC
[2016-07-10 14:30] LABS: HEMATOCRIT 24.5 % (38.0-50.0); MCH 31.4 PG (29.0-34.0); MCHC 33.1 G/DL (30.0-36.0); MEAN PLAT.VOLUME 11.1 uM^3 (9.0-12.4); PLATELET COUNT 106 K/uL (156-360); RBC DIS.WIDTH-CV 18.2 % (11.8-14.6); RBC DIS.WIDTH-SD 61.4 % (39-53); RED BLOOD COUNT 2.58 M/uL (4.00-5.50)
[2016-07-10 14:38] LABS: CHLORIDE 109 mEq/L (99-109); SODIUM 138 mEq/L (136-147)
[2016-07-10 14:39] LABS: POTASSIUM 4.7 mEq/L (3.7-5.4)
[2016-07-10 14:41] LABS: ANION GAP 10 MEQ/L (2-14); GLUCOSE 291 mg/dL (70-99)
[2016-07-10 14:43] LABS: SERUM ETHYL ALCOHOL < 10 mg/dL
[2016-07-10 14:44] LABS: GFR ESTIMATE (CALCULATED) 43 mL/min/
[2016-07-10 14:45] LABS: UREA NITROGEN (BUN) 21 mg/dL (9-23)
[2016-07-10 15:43] LABS: AMPHETAMINE NEGATIVE (500 ng/mL); BARBITURATES NEGATIVE (200 ng/mL); BENZODIAZEPINES NEGATIVE (150 ng/mL); COCAINE NEGATIVE (150 ng/mL); METHADONE NEGATIVE (200 ng/mL); METHAMPHETAMINE NEGATIVE (500 ng/mL); OPIATES (MORPHINE) NEGATIVE (100 ng/mL); PHENCYCLIDINE NEGATIVE (25 ng/mL); THC CANNABINOIDS NEGATIVE (50 ng/mL); TRICYCLIC ANTIDEPRESSANTS NEGATIVE (300 ng/mL)
[2016-07-10 15:44] LABS: INTERNAL CONTROLS VALID? YES; OXYCODONE PRESUMPTIVE POSITIVE (100 ng/mL); PROPOXYPHENE NEGATIVE (300 ng/mL)
[2016-07-10] MEDS ORDERED: ZYPREXA10 MG PO (16:24)
[2016-07-10] MEDS ORDERED: EFFEXOR XR37.5 MG PO (16:27)
[2016-07-10] MEDS ORDERED: ESZOPICLONE2 MG PO (16:28)
[2016-07-10] MEDS ORDERED: LIDOCAINE-PRIL1 EACH TP (16:30)
[2016-07-10] MEDS ORDERED: QUETIAPINE FUMA25 MG PO (16:30)
[2016-07-10] MEDS ORDERED: REXULTI0.5 MG PO (16:31)
[2016-07-10 16:47] VITALS: BP 126/73
[2016-07-11 00:11] LABS: POINT-OF-CARE METER ID UU13113830
[2016-07-11 06:08] LABS: POINT-OF-CARE METER ID UU13113830; POINT-OF-CARE USER ID BHSLRM
[2016-07-11 07:20] VITALS: BP 109/57
[2016-07-11 11:51] LABS: POINT-OF-CARE METER ID UU13113830
[2016-07-11 15:36] VITALS: BP 107/66
[2016-07-11 17:06] LABS: POINT-OF-CARE METER ID UU13113830; POINT-OF-CARE USER ID BHSMRC
== END 2016-07-11 17:24 | DRG 885 ==
LOC: EME 13:06 → EDOF 15:42 → 1WEST 15:42
PROVIDERS: Emergency Medicine; Psychiatry & Neurology Psychiatry
DX: F33.1 Major depressive disorder, recurrent, moderate (principal); F41.1 Generalized anxiety disorder; C18.9 Malignant neoplasm of colon, unspecified; C20 Malignant neoplasm of rectum; G89.3 Neoplasm related pain (acute) (chronic); D50.9 Iron deficiency anemia, unspecified; R45.851 Suicidal ideations; T81.89XA Other complications of procedures, not elsewhere classified, initial encounter; Y83.8 Other surgical procedures as the cause of abnormal reaction of the patient, or of later complication, without mention of misadventure at the time of the procedure; Z93.6 Other artificial openings of urinary tract status; Z93.2 Ileostomy status
CPT/HCPCS: 80048; 80053; 82948; 85025; 85027; 90839; 99281; 99285; G0480; J1815; Q0164

== ENCOUNTER 2016-07-11 14:36 | Inpatient (IN) | payer OTHER ==
[~2016-07-11 14:36] MED LIST changes: +ESZOPICLONE2 MG PO; +LIDOCAINE-PRIL1 EACH TP; +QUETIAPINE FUMA25 MG PO; +REXULTI0.5 MG PO
[2016-07-11 17:45] VITALS: BP 111/66
[2016-07-11 23:08] VITALS: BP 152/86
[2016-07-12 02:45] LABS: POINT-OF-CARE METER ID UU13113725
[2016-07-12 06:23] LABS: POINT-OF-CARE METER ID UU13113725
[2016-07-12 07:12] VITALS: BP 119/60
[2016-07-12 08:29] LABS: EOSINOPHIL (%) 3.3 % (0-5); EOSINOPHIL COUNT 0.1 K/uL (0-0.3); HEMATOCRIT 26.1 % (38.0-50.0); IMMATURE GRANULOCYTE (%) 0.5 % (0.0-0.7); INSTRUMENT ABS NEUTROPHIL CT 1.5 K/uL; LYMPHOCYTE COUNT 0.4 K/uL (1.0-2.8); MCH 31.9 PG (29.0-34.0); MCHC 33.3 G/DL (30.0-36.0); MCV 95.6 FL (86-99); MEAN PLAT.VOLUME 12.4 uM^3 (9.0-12.4); MONOCYTE (%) 5.2 % (3-12); MONOCYTE COUNT 0.1 K/uL (0-0.8); NEUTROPHIL (%) 72.4 % (45-76); NEUTROPHIL COUNT 1.5 K/uL (1.8-6.4); PLATELET COUNT 122 K/uL (156-360); RBC DIS.WIDTH-CV 17.8 % (11.8-14.6); RBC DIS.WIDTH-SD 61.7 % (39-53); RED BLOOD COUNT 2.73 M/uL (4.00-5.50)
[2016-07-12 08:39] VITALS: BP 105/52
[2016-07-12 08:50] LABS: WHITE BLOOD COUNT 2.1 K/uL (4.1-10.2)
[2016-07-12 09:07] LABS: ANION GAP 10 MEQ/L (2-14); CHLORIDE 106 MEQ/L (99-109); GFR ESTIMATE (CALCULATED) 49 mL/min/; SAMPLE HEMOLYSIS CHECK 0; SAMPLE ICTERIC CHECK 0; SAMPLE LIPEMIA CHECK 0; SODIUM 138 MEQ/L (136-147); UREA NITROGEN (BUN) 23 mg/dL (9-23)
[2016-07-12 09:10] LABS: GLUCOSE 107 mg/dL (70-99)
[2016-07-12 12:27] LABS: POINT-OF-CARE METER ID UU13113725
[2016-07-12 13:23] VITALS: BP 186/99
[2016-07-12 13:52] LABS: POINT-OF-CARE METER ID UU13113725
[2016-07-12 15:03] VITALS: BP 159/89
[2016-07-12 16:30] VITALS: BP 112/56
[2016-07-12 21:25] LABS: POINT-OF-CARE METER ID UU13113725
[2016-07-13 00:57] VITALS: BP 119/59
[2016-07-13 07:00] LABS: ALKALINE PHOSPHATASE 95 IU/L (3-129); ANION GAP 8 MEQ/L (2-14); CHLORIDE 103 MEQ/L (99-109); DIRECT BILIRUBIN 0.1 mg/dL (0.0-0.3); GFR ESTIMATE (CALCULATED) 40 mL/min/; GLUCOSE 124 mg/dL (70-99); POTASSIUM 4.3 MEQ/L (3.7-5.4); SAMPLE HEMOLYSIS CHECK 0; SAMPLE ICTERIC CHECK 0; SAMPLE LIPEMIA CHECK 0; SODIUM 133 MEQ/L (136-147); UREA NITROGEN (BUN) 24 mg/dL (9-23)
[2016-07-13 07:05] LABS: TOTAL BILIRUBIN 0.4 MG/DL (0.0-1.0)
[2016-07-13 07:10] LABS: HEMATOCRIT 23.7 % (38.0-50.0); MCH 32.1 PG (29.0-34.0); MCHC 33.8 G/DL (30.0-36.0); MCV 95.2 FL (86-99); MEAN PLAT.VOLUME 12.3 uM^3 (9.0-12.4); NRBC (%) 0.7 /100 WBC (0-0); PLATELET COUNT 111 K/uL (156-360); RBC DIS.WIDTH-CV 17.3 % (11.8-14.6); RBC DIS.WIDTH-SD 60.4 % (39-53); RED BLOOD COUNT 2.49 M/uL (4.00-5.50)
[2016-07-13 07:58] VITALS: BP 110/68
[2016-07-13 09:33] LABS: ADD MIUA? YES; BILIRUBIN NEGATIVE; BLOOD MODERATE; COLOR YELLOW ((YELLOW)); GLUCOSE (STRIP) NEGATIVE; KETONES NEGATIVE; LEUKOCYTES LARGE; NITRITE POSITIVE; PROTEIN (STRIP) 100; SPECIFIC GRAVITY 1.018 (1.000-1.030); UROBILINOGEN 0.2 MG/DL (0.2-1.0)
[2016-07-13 10:51] LABS: UCUL ADDED? YES; WHITE BLOOD CELLS TNTC /HPF (0-5)
[2016-07-13 15:33] VITALS: BP 105/58
[2016-07-13] MEDS ORDERED: EFFEXOR XR37.5 MG PO (16:34)
[2016-07-13] MEDS ORDERED: KLONOPIN0.5 M1 PO (16:34)
== END 2016-07-13 16:34 | disposition left against medical advice (07) | DRG 881 ==
LOC: 5EAST 14:36
PROVIDERS: Hospitalist
PROC: 0T25X0Z Change Drainage Device in Kidney, External Approach (ICD-10-PCS; principal; 2016-07-12)
DX: F32.9 Major depressive disorder, single episode, unspecified (principal); N39.0 Urinary tract infection, site not specified; N13.30 Unspecified hydronephrosis; D61.810 Antineoplastic chemotherapy induced pancytopenia; C19 Malignant neoplasm of rectosigmoid junction; E11.65 Type 2 diabetes mellitus with hyperglycemia; N18.3 Chronic kidney disease, stage 3 (moderate); F41.1 Generalized anxiety disorder; E11.9 Type 2 diabetes mellitus without complications; Z79.4 Long term (current) use of insulin; Z93.2 Ileostomy status; Z93.6 Other artificial openings of urinary tract status; Z68.41 Body mass index [BMI] 40.0-44.9, adult; B96.1 Klebsiella pneumoniae [K. pneumoniae] as the cause of diseases classified elsewhere; B96.5 Pseudomonas (aeruginosa) (mallei) (pseudomallei) as the cause of diseases classified elsewhere; B95.2 Enterococcus as the cause of diseases classified elsewhere
CPT/HCPCS: 50435; 71020; 80048; 80053; 80076; 81003; 82948; 85025; 85027; 87040; 87077; 87086; 87186; 96368; 96375; 96411; 96413; 96415; 96416; C1766; C1769; J0360; J0640; J1100; J1815; J2405; J2469; J7030; J7050; J9190; J9263

== ENCOUNTER → 2016-07-26 | Outpatient (CLI) | payer OTHER | END | disposition home or self-care (01) | LOC: CDC 11:31 | DX: I45.89 Other specified conduction disorders (principal); N13.30 Unspecified hydronephrosis; R10.9 Unspecified abdominal pain; N28.9 Disorder of kidney and ureter, unspecified | CPT/HCPCS: 93000 ==

== ENCOUNTER 2016-08-01 06:28 | Inpatient (IN) | payer OTHER ==
[~2016-08-01] VITALS: Ht 177.8 cm; Wt 119.0 kg
[2016-08-01 06:43] VITALS: BP 128/72
[2016-08-01 07:15] LABS: POINT-OF-CARE METER ID UU14174212
[2016-08-01] MEDS ORDERED: DOCUSATE SODIU100 MG PO (12:38)
[2016-08-01] MEDS ORDERED: OXYCODONE HCL5 MG PO (12:38)
[2016-08-01 13:22] LABS: POINT-OF-CARE METER ID UU13113675
[2016-08-01 15:27] LABS: ANION GAP 8 MEQ/L (2-14); CHLORIDE 108 MEQ/L (99-109); GFR ESTIMATE (CALCULATED) 49 mL/min/; GLUCOSE 155 mg/dL (70-99); SAMPLE HEMOLYSIS CHECK 0; SAMPLE ICTERIC CHECK 0; SAMPLE LIPEMIA CHECK 0; SODIUM 135 MEQ/L (136-147); UREA NITROGEN (BUN) 24 mg/dL (9-23)
[2016-08-01 15:30] VITALS: BP 131/69
[2016-08-01 15:32] LABS: POTASSIUM 5.8 MEQ/L (3.7-5.4)
[2016-08-01 15:47] LABS: MCH 32.3 PG (29.0-34.0); MCHC 33.8 G/DL (30.0-36.0); MCV 95.8 FL (86-99); NRBC (%) 0.5 /100 WBC (0-0); PLATELET COUNT 239 K/uL (156-360); RBC DIS.WIDTH-CV 16.7 % (11.8-14.6); RBC DIS.WIDTH-SD 56.6 % (39-53); RED BLOOD COUNT 3.34 M/uL (4.00-5.50); WHITE BLOOD COUNT 18.8 K/uL (4.1-10.2)
[2016-08-01 19:01] VITALS: BP 128/76
[2016-08-01 21:08] LABS: ANION GAP 7 MEQ/L (2-14); CHLORIDE 108 MEQ/L (99-109); GFR ESTIMATE (CALCULATED) 46 mL/min/; GLUCOSE 138 mg/dL (70-99); POTASSIUM 6.4 MEQ/L (3.7-5.4); SAMPLE HEMOLYSIS CHECK 0; SAMPLE ICTERIC CHECK 0; SAMPLE LIPEMIA CHECK 0; SODIUM 134 MEQ/L (136-147); UREA NITROGEN (BUN) 25 mg/dL (9-23)
[2016-08-01 23:00] VITALS: BP 126/68
[2016-08-02 02:48] LABS: POINT-OF-CARE METER ID UU13113725
[2016-08-02 05:23] VITALS: BP 130/30
[2016-08-02 06:47] LABS: HEMATOCRIT 26.6 % (38.0-50.0); MCH 31.7 PG (29.0-34.0); MCHC 33.1 G/DL (30.0-36.0); MCV 95.7 FL (86-99); MEAN PLAT.VOLUME 10.9 uM^3 (9.0-12.4); NRBC (%) 0.6 /100 WBC (0-0); PLATELET COUNT 195 K/uL (156-360); RBC DIS.WIDTH-CV 17.1 % (11.8-14.6); RBC DIS.WIDTH-SD 57.7 % (39-53); RED BLOOD COUNT 2.78 M/uL (4.00-5.50); WHITE BLOOD COUNT 11.2 K/uL (4.1-10.2)
[2016-08-02 07:03] LABS: ANION GAP 9 MEQ/L (2-14); CHLORIDE 107 MEQ/L (99-109); GFR ESTIMATE (CALCULATED) 49 mL/min/; GLUCOSE 156 mg/dL (70-99); POTASSIUM 4.6 MEQ/L (3.7-5.4); SAMPLE HEMOLYSIS CHECK 0; SAMPLE ICTERIC CHECK 0; SAMPLE LIPEMIA CHECK 0; SODIUM 137 MEQ/L (136-147); UREA NITROGEN (BUN) 24 mg/dL (9-23)
[2016-08-02 07:23] VITALS: BP 136/86
[2016-08-02 11:00] VITALS: BP 138/82
[2016-08-02 11:33] LABS: POINT-OF-CARE METER ID UU13113725
[2016-08-02 15:48] VITALS: BP 132/78
[2016-08-02 19:11] VITALS: BP 109/57
[2016-08-02 21:29] LABS: POINT-OF-CARE METER ID UU13113725
[2016-08-02 22:53] VITALS: BP 117/57
[2016-08-03] VITALS (12 sets, daily range): BP systolic 109–147; BP diastolic 53–82
[2016-08-03 07:11] LABS: HEMATOCRIT 22.1 % (38.0-50.0); MCV 96.9 FL (86-99); NRBC (%) 0.2 /100 WBC (0-0); RBC DIS.WIDTH-CV 17.2 % (11.8-14.6); RBC DIS.WIDTH-SD 59.1 % (39-53); RED BLOOD COUNT 2.28 M/uL (4.00-5.50); WHITE BLOOD COUNT 8.4 K/uL (4.1-10.2)
[2016-08-03 07:15] LABS: ANION GAP 5 MEQ/L (2-14); CHLORIDE 104 MEQ/L (99-109); GFR ESTIMATE (CALCULATED) 57 mL/min/; GLUCOSE 125 mg/dL (70-99); POTASSIUM 3.7 MEQ/L (3.7-5.4); SAMPLE HEMOLYSIS CHECK 0; SAMPLE ICTERIC CHECK 0; SAMPLE LIPEMIA CHECK 0; SODIUM 133 MEQ/L (136-147); UREA NITROGEN (BUN) 18 mg/dL (9-23)
[2016-08-03 07:32] LABS: MEAN PLAT.VOLUME 10.8 uM^3 (9.0-12.4); PLAT.SUFFICIENCY DECREASED; PLATELET COUNT 132 K/uL (156-360)
[2016-08-03 15:47] LABS: POINT-OF-CARE METER ID UU13113725
[2016-08-03 20:45] LABS: POINT-OF-CARE METER ID UU13113725
[2016-08-03 22:22] LABS: POINT-OF-CARE METER ID UU13113725
[2016-08-04 05:37] VITALS: BP 123/65
[2016-08-04 05:41] LABS: POINT-OF-CARE METER ID UU13113725
[2016-08-04 06:53] VITALS: BP 143/79
[2016-08-04 07:01] LABS: HEMATOCRIT 25.3 % (38.0-50.0); MCH 32.2 PG (29.0-34.0); MCV 94.8 FL (86-99); MEAN PLAT.VOLUME 11.3 uM^3 (9.0-12.4); NRBC (%) 0.4 /100 WBC (0-0); PLATELET COUNT 122 K/uL (156-360); RBC DIS.WIDTH-CV 16.8 % (11.8-14.6); RBC DIS.WIDTH-SD 56.4 % (39-53); RED BLOOD COUNT 2.67 M/uL (4.00-5.50); WHITE BLOOD COUNT 7.2 K/uL (4.1-10.2)
[2016-08-04 07:30] LABS: ANION GAP 7 MEQ/L (2-14); CHLORIDE 105 MEQ/L (99-109); GFR ESTIMATE (CALCULATED) 57 mL/min/; GLUCOSE 114 mg/dL (70-99); POTASSIUM 3.6 MEQ/L (3.7-5.4); SAMPLE HEMOLYSIS CHECK 0; SAMPLE ICTERIC CHECK 0; SAMPLE LIPEMIA CHECK 0; SODIUM 136 MEQ/L (136-147); UREA NITROGEN (BUN) 14 mg/dL (9-23)
[2016-08-04 11:26] VITALS: BP 125/75
[2016-08-04 11:37] LABS: POINT-OF-CARE METER ID UU13113725
[2016-08-04 15:43] VITALS: BP 125/71
[2016-08-04 15:53] LABS: POINT-OF-CARE METER ID UU13113725
[2016-08-04 21:02] LABS: POINT-OF-CARE METER ID UU13113725
[2016-08-04 22:39] LABS: POINT-OF-CARE METER ID UU13113725
[2016-08-04 22:47] VITALS: BP 125/58
[2016-08-05 06:20] LABS: HEMATOCRIT 25.4 % (38.0-50.0); MCH 31.9 PG (29.0-34.0); MCHC 33.9 G/DL (30.0-36.0); MCV 94.1 FL (86-99); NRBC (%) 0.6 /100 WBC (0-0); PLATELET COUNT 140 K/uL (156-360); RBC DIS.WIDTH-SD 54.4 % (39-53); WHITE BLOOD COUNT 5.2 K/uL (4.1-10.2)
[2016-08-05 06:41] LABS: ANION GAP 9 MEQ/L (2-14); CHLORIDE 107 MEQ/L (99-109); GFR ESTIMATE (CALCULATED) 49 mL/min/; GLUCOSE 113 mg/dL (70-99); POTASSIUM 3.5 MEQ/L (3.7-5.4); SAMPLE HEMOLYSIS CHECK 0; SAMPLE ICTERIC CHECK 0; SAMPLE LIPEMIA CHECK 0; SODIUM 142 MEQ/L (136-147); UREA NITROGEN (BUN) 14 mg/dL (9-23)
[2016-08-05 07:14] VITALS: BP 173/90
[2016-08-05 11:28] LABS: POINT-OF-CARE METER ID UU13113725
== END 2016-08-05 13:42 | disposition home health service (06) | DRG 660 ==
LOC: 2SOUTH → 5EAST 15:00
PROVIDERS: Urology
DX: N13.6 Pyonephrosis (principal); D62 Acute posthemorrhagic anemia; E87.5 Hyperkalemia; E87.1 Hypo-osmolality and hyponatremia; E87.2 Acidosis; E11.22 Type 2 diabetes mellitus with diabetic chronic kidney disease; N18.4 Chronic kidney disease, stage 4 (severe); K61.2 Anorectal abscess; N11.1 Chronic obstructive pyelonephritis; C20 Malignant neoplasm of rectum; I12.9 Hypertensive chronic kidney disease with stage 1 through stage 4 chronic kidney disease, or unspecified chronic kidney disease; E78.5 Hyperlipidemia, unspecified; F32.9 Major depressive disorder, single episode, unspecified; F41.1 Generalized anxiety disorder; G89.29 Other chronic pain; E66.9 Obesity, unspecified; Z68.37 Body mass index [BMI] 37.0-37.9, adult; Z93.3 Colostomy status; Z90.49 Acquired absence of other specified parts of digestive tract; Z93.6 Other artificial openings of urinary tract status
CPT/HCPCS: 80048; 80048 91; 82948; 84132; 85027; 86900; 86901; 86920; 86999; 88307; J0131; J0330; J0610; J0692; J0696; J1100; J1170; J1644; J1815; J2250; J2405; J2710; J3010; J7030; J7050; J7120; P9016; S0020

== ENCOUNTER → 2017-04-09 | Outpatient (CLI) | payer OTHER ==
[~2017-04-09] MED LIST changes: +DOCUSATE SODIU100 MG PO; +OXYCODONE HCL5 MG PO
== END | disposition home or self-care (01) ==
LOC: AMB 09:00
PROC: 0JPT3WZ Removal of Totally Implantable Vascular Access Device from Trunk Subcutaneous Tissue and Fascia, Percutaneous Approach (ICD-10-PCS; principal; 2017-04-09)
PROC: 02PYX3Z Removal of Infusion Device from Great Vessel, External Approach (ICD-10-PCS; principal; 2017-04-09)
DX: Z45.2 Encounter for adjustment and management of vascular access device (principal); I87.8 Other specified disorders of veins; Z92.21 Personal history of antineoplastic chemotherapy; Z85.51 Personal history of malignant neoplasm of bladder

== ENCOUNTER → 2017-06-06 | Outpatient (CLI) | payer OTHER ==
[~2017-06-06] VITALS: Ht 179.1 cm; Wt 132.9 kg
== END | disposition home or self-care (01) ==
LOC: AMB 10:39
PROVIDERS: Internal Medicine
DX: K31.7 Polyp of stomach and duodenum (principal); K25.9 Gastric ulcer, unspecified as acute or chronic, without hemorrhage or perforation; Z85.038 Personal history of other malignant neoplasm of large intestine; Z92.21 Personal history of antineoplastic chemotherapy; Z92.3 Personal history of irradiation; Z93.2 Ileostomy status; Z93.6 Other artificial openings of urinary tract status; F32.9 Major depressive disorder, single episode, unspecified; Z86.010 Personal history of colon polyps; D50.9 Iron deficiency anemia, unspecified; E11.42 Type 2 diabetes mellitus with diabetic polyneuropathy; E11.65 Type 2 diabetes mellitus with hyperglycemia; N28.9 Disorder of kidney and ureter, unspecified
CPT/HCPCS: 82948; 88305; 88342 TC; J2250

== ENCOUNTER 2017-07-01 16:47 | Observation (INO) | payer OTHER ==
[~2017-07-01] VITALS: Ht 177.8 cm; Wt 133.1 kg
[~2017-07-01 16:47] MED LIST changes: +DESYREL 150 MG150 MG PO; -TRAZODONE HCL50 MG PO
[2017-07-01 18:07] LABS: BASOPHIL (%) 0.3 % (0-1); EOSINOPHIL (%) 2.6 % (0-5); EOSINOPHIL COUNT 0.2 K/uL (0-0.3); HEMATOCRIT 31.4 % (38.0-50.0); IMMATURE GRANULOCYTE (%) 2.2 % (0.0-0.7); LYMPHOCYTE (%) 10.3 % (15-42); LYMPHOCYTE COUNT 0.6 K/uL (1.0-2.8); MCH 29.3 PG (29.0-34.0); MCV 83.7 FL (86-99); MONOCYTE (%) 8.5 % (3-12); MONOCYTE COUNT 0.5 K/uL (0-0.8); NEUTROPHIL (%) 76.1 % (45-76); NEUTROPHIL COUNT 4.8 K/uL (1.8-6.4); PLATELET COUNT 130 K/uL (156-360); RBC DIS.WIDTH-CV 15.3 % (11.8-14.6); RBC DIS.WIDTH-SD 46.2 % (39-53); RED BLOOD COUNT 3.75 M/uL (4.00-5.50); WHITE BLOOD COUNT 6.2 K/uL (4.1-10.2)
[2017-07-01 18:14] LABS: CARBON DIOXIDE (BICARBONATE) 23.5 MEQ/L (20-31)
[2017-07-01 18:17] LABS: ALBUMIN 4.1 g/dL (3.2-4.8)
[2017-07-01 18:18] LABS: CHLORIDE 104 mEq/L (99-109); POTASSIUM 4.4 mEq/L (3.7-5.4); SODIUM 134 mEq/L (136-147)
[2017-07-01 18:20] LABS: GLUCOSE 307 mg/dL (70-99); TOTAL PROTEIN 7.6 g/dL (6.4-8.3)
[2017-07-01 18:22] LABS: TOTAL BILIRUBIN 0.3 mg/dL (0.0-1.0)
[2017-07-01 18:23] LABS: ALKALINE PHOSPHATASE 117 IU/L (3-129)
[2017-07-01 18:24] LABS: CREATININE 2.2 mg/dL (0.6-1.3); GFR ESTIMATE (CALCULATED) 34 mL/min/ (58.99-99999)
[2017-07-01 18:25] LABS: AST (GOT) 30 IU/L (2-34); UREA NITROGEN (BUN) 30 mg/dL (9-23)
[2017-07-01 18:26] LABS: ALT (GPT) 40 IU/L (3-49)
[2017-07-01 18:28] LABS: TROP-I INTERPRETATION NEGATIVE; TROPONIN-I < 0.01 ng/mL (0.0-0.30)
[2017-07-01] MEDS ORDERED: DESYREL 150 MG150 MG PO (20:35)
[2017-07-01] MEDS ORDERED: ZANTAC150 MG PO (20:36)
[2017-07-01] MEDS ORDERED: BASAGLAR K100 UNIT/1 SC (20:36)
[2017-07-01] MEDS ORDERED: LIPITOR20 MG PO (20:36)
[2017-07-01] MEDS ORDERED: VRAYLAR3 MG PO (20:37)
[2017-07-01] MEDS ORDERED: CATAPRES0.1 MG PO (20:37)
[2017-07-01] MEDS ORDERED: SINGULAIR10 MG PO (20:37)
[2017-07-01] MEDS ORDERED: LYRICA50 MG PO (20:37)
[2017-07-01] MEDS ORDERED: GLIPIZIDE XL5 MG PO (20:37)
[2017-07-01 22:30] LABS: BASE EXCESS -4.7 mEq/L (-3 to +3); BICARBONATE 20.4 mEq/L (22-26); METHEMOGLOBIN 1.1 % (0-1.5); PCO2 37 mm Hg (35-45); pH 7.35 (7.35-7.45)
[2017-07-01 22:31] LABS: COMMENTS - BLOOD GASES A+C+; FI02 21 %; PO2 82 mm Hg (80-100); SITE RR
[2017-07-02 00:59] LABS: TROP-I INTERPRETATION NEGATIVE; TROPONIN-I < 0.01 ng/mL (0.0-0.30)
[2017-07-02 03:40] VITALS: BP 133/76
[2017-07-02 07:51] LABS: TROP-I INTERPRETATION NEGATIVE; TROPONIN-I 0.01 ng/mL (0.0-0.30)
[2017-07-02 08:00] LABS: HDL CHOLESTEROL 24 MG/DL (Desirable>=40); NON-HDL CHOLESTEROL 154 mg/dL (Desirable<160); TOTAL CHOLESTEROL 178 mg/dL (Desirable<200); TRIGLYCERIDES 1501 MG/DL (Normal: <150)
[2017-07-02 08:52] LABS: CHLORIDE 105 MEQ/L (99-109); CREATININE 1.9 MG/DL (0.6-1.3); GFR ESTIMATE (CALCULATED) 40 mL/min/ (58.99-99999); GLUCOSE 290 mg/dL (70-99); POTASSIUM 4.3 MEQ/L (3.7-5.4); SODIUM 134 MEQ/L (136-147); UREA NITROGEN (BUN) 30 mg/dL (9-23)
[2017-07-02 09:50] VITALS: BP 129/61
[2017-07-02 10:21] LABS: HEMOGLOBIN A1c (GLYCOHEMOGLOB) 10.9 % (Below 5.7)
[2017-07-02 11:32] VITALS: BP 138/67
== END 2017-07-02 13:22 | disposition home or self-care (01) ==
LOC: EME 16:47 → EDOF 21:40 → 4SOUTH 21:40 → ENRESERV 21:42 → 4SOUTH 23:15
PROVIDERS: Emergency Medicine; Hospitalist; Physician Assistant Medical
DX: R07.89 Other chest pain (principal); E11.65 Type 2 diabetes mellitus with hyperglycemia; Z91.14 Patient's other noncompliance with medication regimen; E11.22 Type 2 diabetes mellitus with diabetic chronic kidney disease; I12.9 Hypertensive chronic kidney disease with stage 1 through stage 4 chronic kidney disease, or unspecified chronic kidney disease; N18.3 Chronic kidney disease, stage 3 (moderate); Z85.048 Personal history of other malignant neoplasm of rectum, rectosigmoid junction, and anus; G89.29 Other chronic pain; K28.9 Gastrojejunal ulcer, unspecified as acute or chronic, without hemorrhage or perforation; K31.7 Polyp of stomach and duodenum; I71.2 Thoracic aortic aneurysm, without rupture; F41.1 Generalized anxiety disorder; F32.9 Major depressive disorder, single episode, unspecified; G40.909 Epilepsy, unspecified, not intractable, without status epilepticus; E78.5 Hyperlipidemia, unspecified; Z90.5 Acquired absence of kidney; Z93.2 Ileostomy status; E66.01 Morbid (severe) obesity due to excess calories; Z68.41 Body mass index [BMI] 40.0-44.9, adult; Z79.82 Long term (current) use of aspirin; Z79.4 Long term (current) use of insulin; E87.2 Acidosis; E86.0 Dehydration; N17.9 Acute kidney failure, unspecified; D63.8 Anemia in other chronic diseases classified elsewhere; D69.6 Thrombocytopenia, unspecified; Z82.49 Family history of ischemic heart disease and other diseases of the circulatory system; Z80.0 Family history of malignant neoplasm of digestive organs; Z88.5 Allergy status to narcotic agent
CPT/HCPCS: 36600; 71250; 80048; 80048 91; 80053; 80061; 82010; 82803; 82948; 83036; 84484; 85025; 93005; 99281; 99285; G0378; J1650; J1815; J7030

== ENCOUNTER 2017-08-01 09:21 | Day surgery (SDC) | payer OTHER ==
[~2017-08-01] VITALS: Ht 177.8 cm; Wt 132.4 kg
[~2017-08-01 09:21] MED LIST changes: +BASAGLAR K100 UNIT/1 SC; +CATAPRES0.1 MG PO; +GLIPIZIDE XL5 MG PO; +LIPITOR20 MG PO; +LYRICA50 MG PO; +VRAYLAR3 MG PO; +ZANTAC150 MG PO
[2017-08-01] MEDS ORDERED: ATARAX10 MG PO (10:08)
[2017-08-01 10:25] VITALS: BP 138/82
[2017-08-01] MEDS ORDERED: NORCO 5/3251 TABLET PO (14:33)
[2017-08-01 15:54] VITALS: BP 132/72
[2017-08-01 23:10] VITALS: BP 139/63
[2017-08-02 06:38] LABS: HEMATOCRIT 34.4 % (38.0-50.0); HEMOGLOBIN 11.1 G/DL (12.5-16.6); MCH 28.7 PG (29.0-34.0); MCHC 32.3 G/DL (30.0-36.0); MCV 88.9 FL (86-99); PLATELET COUNT 131 K/uL (156-360); RBC DIS.WIDTH-CV 16.1 % (11.8-14.6); RBC DIS.WIDTH-SD 51.6 % (39-53); RED BLOOD COUNT 3.87 M/uL (4.00-5.50); WHITE BLOOD COUNT 7.4 K/uL (4.1-10.2)
[2017-08-02 07:44] VITALS: BP 161/98
[2017-08-02 11:35] VITALS: BP 154/77
== END 2017-08-02 12:16 | disposition home or self-care (01) ==
LOC: SDC 09:21 → 2SOUTH 14:32 → 2EAST 14:32 → 2SOUTH 14:32 → ENRESERV 14:41 → SDC 15:29 → 2EAST 15:54
PROVIDERS: Surgery
PROC: 0WQF0ZZ Repair Abdominal Wall, Open Approach (ICD-10-PCS; principal; 2017-08-01)
DX: K43.5 Parastomal hernia without obstruction or gangrene (principal); Z85.038 Personal history of other malignant neoplasm of large intestine; Z85.048 Personal history of other malignant neoplasm of rectum, rectosigmoid junction, and anus; Z93.3 Colostomy status; I10 Essential (primary) hypertension; F41.1 Generalized anxiety disorder; F32.9 Major depressive disorder, single episode, unspecified; J45.909 Unspecified asthma, uncomplicated; E11.9 Type 2 diabetes mellitus without complications; Z79.4 Long term (current) use of insulin; D63.8 Anemia in other chronic diseases classified elsewhere; F17.220 Nicotine dependence, chewing tobacco, uncomplicated; Z83.3 Family history of diabetes mellitus; Z82.49 Family history of ischemic heart disease and other diseases of the circulatory system; Z92.21 Personal history of antineoplastic chemotherapy
CPT/HCPCS: 82948; 85027; 86850; 86900; 86901; 88305; G0378; J0131; J0330; J1815; J2001; J2250; J2405; J2710; J3010; J3475; J7120; J7643; S0020; S0074

== ENCOUNTER 2017-08-26 14:09 | Inpatient (IN) | payer OTHER ==
[~2017-08-26] VITALS: Ht 177.8 cm; Wt 133.4 kg
[~2017-08-26 14:09] MED LIST changes: +ATARAX10 MG PO; +NORCO 5/3251 TABLET PO
[2017-08-26 15:07] LABS: HEMATOCRIT 36.7 % (38.0-50.0); MCH 29.5 PG (29.0-34.0); MCHC 35.4 G/DL (30.0-36.0); MCV 83.4 FL (86-99); PLATELET COUNT 133 K/uL (156-360); RBC DIS.WIDTH-SD 45.9 % (39-53); WHITE BLOOD COUNT 7.7 K/uL (4.1-10.2)
[2017-08-26 15:57] LABS: ALBUMIN 4.5 G/DL (3.2-4.8); CHLORIDE 99 MEQ/L (99-109); POTASSIUM 4.4 MEQ/L (3.7-5.4); SODIUM 129 MEQ/L (136-147); TOTAL BILIRUBIN 0.5 MG/DL (0.0-1.0)
[2017-08-26 16:03] LABS: ALKALINE PHOSPHATASE 84 IU/L (3-129); ALT (GPT) 56 IU/L (3-49); AST (GOT) 50 IU/L (2-34); GFR ESTIMATE (CALCULATED) 38 mL/min/ (58.99-99999); GLUCOSE 242 mg/dL (70-99); TOTAL PROTEIN 7.8 G/DL (6.4-8.3); UREA NITROGEN (BUN) 25 mg/dL (9-23)
[2017-08-26 17:23] LABS: APPEARANCE CLOUDY ((CLEAR)); BILIRUBIN NEGATIVE; BLOOD NEGATIVE; COLOR AMBER ((YELLOW)); GLUCOSE (STRIP) >=500; KETONES NEGATIVE; LEUKOCYTES NEGATIVE; NITRITE POSITIVE; PROTEIN (STRIP) 100; SPECIFIC GRAVITY 1.022 (1.000-1.030); UROBILINOGEN 0.2 MG/DL (0.2-1.0)
[2017-08-26 17:32] LABS: BACTERIA 1+ /HPF; EPITHELIAL CELLS RARE /HPF; MUCUS TRACE /LPF; UCUL ADDED? YES
[2017-08-26 18:26] LABS: LIPASE 679 U/L (1.0-51.0)
[2017-08-26 18:32] LABS: TROP-I INTERPRETATION NEGATIVE; TROPONIN-I < 0.01 ng/mL (0.0-0.30)
[2017-08-26 21:47] LABS: C-REACTIVE PROTEIN 6.5 MG/L (0-10); TRIGLYCERIDES 3271 MG/DL (Normal: <150)
[2017-08-26] MEDS ORDERED: MONTELUKAST SOD10 MG PO (23:07)
[2017-08-26] MEDS ORDERED: CLONIDINE HCL0.1 MG PO (23:07)
[2017-08-26] MEDS ORDERED: RANITIDINE HCL150 MG PO (23:08)
[2017-08-26] MEDS ORDERED: ATORVASTATIN CA20 MG PO (23:08)
[2017-08-26] MEDS ORDERED: FENOFIBRATE160 M1 PO (23:12)
[2017-08-26] MEDS ORDERED: LOPRESSOR100 M1 PO (23:13)
[2017-08-26] MEDS ORDERED: ASCORBIC ACID100 MG PO (23:18)
[2017-08-27] VITALS (10 sets, daily range): BP systolic 132–177; BP diastolic 78–111
[2017-08-27] MEDS ORDERED: HUMALOG100 UNIT/2 SC
[2017-08-27 06:59] LABS: HEMATOCRIT 48.5 % (38.0-50.0); MCH 28.3 PG (29.0-34.0); MCHC 33.2 G/DL (30.0-36.0); MCV 85.4 FL (86-99); RBC DIS.WIDTH-CV 15.8 % (11.8-14.6); RBC DIS.WIDTH-SD 48.4 % (39-53); WHITE BLOOD COUNT 5.3 K/uL (4.1-10.2)
[2017-08-27 07:01] LABS: HEMOGLOBIN 16.1 G/DL (12.5-16.6); PLATELET COUNT 196 K/uL (156-360); RED BLOOD COUNT 5.68 M/uL (4.00-5.50)
[2017-08-27 07:06] LABS: ABS NEUTROPHIL COUNT 4.1; ANISOCYTOSIS 1+; BASOPHILS 1.8 %; EOSINOPHIL ABS CT 0; EOSINOPHILS 0.9 % (0-5.0); LYMPHOCYTES 12.4 % (15.0-45.0); MICROCYTOSIS 1+; MONOCYTES 7.9 % (0-9.0); OVALOCYTES 1+; PLAT.SUFFICIENCY ADEQUATE; POIKILOCYTOSIS 2+; SMUDGE CELLS 1.8; TEAR DROP CELLS 1+
[2017-08-27 07:16] LABS: ALBUMIN 3.9 G/DL (3.2-4.8); ALKALINE PHOSPHATASE 80 IU/L (3-129); ALT (GPT) 46 IU/L (3-49); AST (GOT) 38 IU/L (2-34); CHLORIDE 101 MEQ/L (99-109); CREATININE 2.2 MG/DL (0.6-1.3); GFR ESTIMATE (CALCULATED) 34 mL/min/ (58.99-99999); GLUCOSE 479 mg/dL (70-99); LIPASE 3827 U/L (1.0-51.0); POTASSIUM 6.3 MEQ/L (3.7-5.4); SODIUM 130 MEQ/L (136-147); TOTAL BILIRUBIN 0.7 MG/DL (0.0-1.0); TOTAL PROTEIN 6.8 G/DL (6.4-8.3); UREA NITROGEN (BUN) 28 mg/dL (9-23)
[2017-08-27 10:20] LABS: BASE EXCESS -9.5 mEq/L (-3 to +3); BICARBONATE 16.5 mEq/L (22-26); CARBOXY HGB 1.9 % (0-5); COMMENTS - BLOOD GASES A+C+; FI02 21 %; METHEMOGLOBIN 0.9 % (0-1.5); PCO2 36 mm Hg (35-45); PO2 68 mm Hg (80-100); SITE LR
[2017-08-27 10:21] LABS: pH 7.27 (7.35-7.45)
[2017-08-27 11:45] LABS: CHLORIDE 104 MEQ/L (99-109); CREATININE 2.2 MG/DL (0.6-1.3); GFR ESTIMATE (CALCULATED) 34 mL/min/ (58.99-99999); POTASSIUM 5.6 MEQ/L (3.7-5.4); SODIUM 133 MEQ/L (136-147); UREA NITROGEN (BUN) 31 mg/dL (9-23)
[2017-08-27 11:48] LABS: GLUCOSE 443 mg/dL (70-99)
== END 2017-08-27 17:33 | disposition short-term general hospital (02) | DRG 438 ==
LOC: EME 14:09 → EDOF 19:12 → 4WEST 19:12 → CANRESERV 19:18 → ENRESERV 19:18 → 5EAST 23:58 → ENRESERV 08-27 09:57 → ENPENDDIS 08-27 10:21 → 4WEST 08-27 10:32
PROVIDERS: Hospitalist; Internal Medicine; Internal Medicine Nephrology
DX: K85.90 Acute pancreatitis without necrosis or infection, unspecified (principal); R65.11 Systemic inflammatory response syndrome (SIRS) of non-infectious origin with acute organ dysfunction; N17.9 Acute kidney failure, unspecified; E11.10 Type 2 diabetes mellitus with ketoacidosis without coma; E83.51 Hypocalcemia; E87.1 Hypo-osmolality and hyponatremia; E87.5 Hyperkalemia; E78.1 Pure hyperglyceridemia; I12.9 Hypertensive chronic kidney disease with stage 1 through stage 4 chronic kidney disease, or unspecified chronic kidney disease; N18.3 Chronic kidney disease, stage 3 (moderate); E11.22 Type 2 diabetes mellitus with diabetic chronic kidney disease; E78.5 Hyperlipidemia, unspecified; F32.9 Major depressive disorder, single episode, unspecified; F41.1 Generalized anxiety disorder; J45.909 Unspecified asthma, uncomplicated; E66.01 Morbid (severe) obesity due to excess calories; Z68.41 Body mass index [BMI] 40.0-44.9, adult; Z79.4 Long term (current) use of insulin; Z85.048 Personal history of other malignant neoplasm of rectum, rectosigmoid junction, and anus; Z90.49 Acquired absence of other specified parts of digestive tract; Z93.3 Colostomy status; Z90.5 Acquired absence of kidney; Z93.6 Other artificial openings of urinary tract status
CPT/HCPCS: 36600; 71046; 74176; 76705; 80048 91; 80053; 81003; 82010; 82330; 82803; 82948; 83605; 83690; 84478; 84484; 85025; 85027; 86140; 87086; 87641; 93005; 99281; 99284; J1170; J1644; J1815; J2405; J2765; J3010; J7030; J7050; J7120; S0028

== ENCOUNTER 2017-09-20 18:18 | Emergency (ER) | payer OTHER ==
[~2017-09-20] VITALS: Ht 177.8 cm; Wt 125.0 kg
[~2017-09-20 18:18] MED LIST changes: +ASCORBIC ACID100 MG PO; +ATORVASTATIN CA20 MG PO; +CLONIDINE HCL0.1 MG PO; +FENOFIBRATE160 M1 PO; +HUMALOG100 UNIT/2 SC; +LOPRESSOR100 M1 PO; +MONTELUKAST SOD10 MG PO; +RANITIDINE HCL150 MG PO
[2017-09-20 19:01] LABS: HEMATOCRIT 27.5 % (38.0-50.0); HEMOGLOBIN 9.3 G/DL (12.5-16.6); MCH 28.6 PG (29.0-34.0); MCHC 33.8 G/DL (30.0-36.0); MCV 84.6 FL (86-99); PLATELET COUNT 243 K/uL (156-360); RBC DIS.WIDTH-CV 15.7 % (11.8-14.6); RBC DIS.WIDTH-SD 47.5 % (39-53); RED BLOOD COUNT 3.25 M/uL (4.00-5.50); WHITE BLOOD COUNT 5.6 K/uL (4.1-10.2)
[2017-09-20 19:17] LABS: ALKALINE PHOSPHATASE 94 IU/L (3-129); ALT (GPT) 30 IU/L (3-49); AST (GOT) 30 IU/L (2-34); CHLORIDE 106 MEQ/L (99-109); CREATININE 1.9 MG/DL (0.6-1.3); GFR ESTIMATE (CALCULATED) 40 mL/min/ (58.99-99999); LIPASE 49 U/L (1.0-51.0); POTASSIUM 4.3 MEQ/L (3.7-5.4); SODIUM 139 MEQ/L (136-147); TOTAL BILIRUBIN 0.3 MG/DL (0.0-1.0); TOTAL PROTEIN 6.9 G/DL (6.4-8.3); UREA NITROGEN (BUN) 22 mg/dL (9-23)
[2017-09-20 19:18] LABS: TROP-I INTERPRETATION NEGATIVE; TROPONIN-I < 0.01 ng/mL (0.0-0.30)
[2017-09-20 19:20] LABS: GLUCOSE 85 mg/dL (70-99)
[2017-09-20 20:10] LABS: TRIGLYCERIDES 329 MG/DL (Normal: <150)
[2017-09-20 20:22] LABS: APPEARANCE SL.HAZY ((CLEAR)); BILIRUBIN NEGATIVE; BLOOD NEGATIVE; COLOR YELLOW ((YELLOW)); GLUCOSE (STRIP) NEGATIVE; KETONES NEGATIVE; LEUKOCYTES MODERATE; NITRITE POSITIVE; PROTEIN (STRIP) NEGATIVE; SPECIFIC GRAVITY 1.013 (1.000-1.030); UROBILINOGEN 0.2 MG/DL (0.2-1.0)
[2017-09-20 20:33] LABS: BACTERIA RARE /HPF; EPITHELIAL CELLS RARE /HPF; MUCUS TRACE /LPF; RED BLOOD CELLS 0-5 /HPF (0-5); UCUL ADDED? YES; WHITE BLOOD CELLS 20-30 /HPF (0-5)
[2017-09-20 22:01] VITALS: BP 128/77
== END 2017-09-20 22:08 | disposition home or self-care (01) ==
LOC: EME 18:18
DX: R10.13 Epigastric pain (principal); K86.3 Pseudocyst of pancreas; Z85.038 Personal history of other malignant neoplasm of large intestine; J45.909 Unspecified asthma, uncomplicated; I10 Essential (primary) hypertension; Z93.6 Other artificial openings of urinary tract status; Z93.3 Colostomy status; F32.9 Major depressive disorder, single episode, unspecified; F41.1 Generalized anxiety disorder; Z86.73 Personal history of transient ischemic attack (TIA), and cerebral infarction without residual deficits; Z88.5 Allergy status to narcotic agent
CPT/HCPCS: 71046; 71250; 74176; 80053; 81003; 82948; 83690; 84478; 84484; 85027; 87077; 87086; 87186; 93005; 99281; 99285